=== PATIENT | female | born 1955 | race Caucasian/White ===

== ENCOUNTER 2017-07-12 08:49 | Day surgery (SDC) | payer BC ==
[2017-07-09 10:14] VITALS: BMI 26.5
[2017-07-12] MEDS ORDERED: Midazolam 2 MG/2 ML VIAL ONE (11:35)
[2017-07-12] MEDS ORDERED: Propofol 10 mg/ml Inj (20 ML) ONE (11:35)
[2017-07-12] MEDS ORDERED: ePHEDrine 50 mg/ml Inj ONE (11:48)
--- NOTE | 2017-07-12 12:02 | PCM.SURG1 ---
Surgeon's Initial Post Op Note - Surgeon's Notes Surgeon: Dr. Guajardo Bellman Captain: None Type of Anesthesia: General LMA Anesthesia Administered By: Dr. Napier Pre-Operative Diagnosis: 62 yo with Postmenopausal bleeding, Thickened endometrium Operative Findings: Av uterus atrophy endometrium Post-Operative Diagnosis: Same as above Operation Performed: Hysteroscopy Myosure D and C Specimen/Specimens Removed: EMC,ECC Estimated Blood Loss: EBL {In ML}: 5 Blood Products Given: N/A Drains Used: No Drains Post-Op Condition: Good Date of Surgery/Procedure: 07/12/17 Time of Surgery/Procedure: 12:02
[2017-07-12] MEDS ORDERED: HYDROmorphone 0.5 mg/0.5 ml ISec IVP PRN (12:03)
[2017-07-12 13:25] VITALS: RESP 16
[2017-07-12 14:39] VITALS: BP 94/51; PULSE 52; TEMP 97.1; O2SAT 98
--- NOTE | 2017-07-13 | OP ---
PROCEDURE DATE: 07/12/2017 PREOPERATIVE DIAGNOSES: A 62-year-old female with postmenopausal bleeding and thickened endometrium. POSTOPERATIVE DIAGNOSIS: A 62-year-old female with postmenopausal bleeding and thickened endometrium. PROCEDURE: Hysteroscopy and MyoSure D and C. SURGEON: Luana Guajardo MD TYPE OF ANESTHESIA: General LMA. ANESTHESIA ADMINISTERED BY: Dr. Melchor. FINDINGS: Anteverted uterus approximately 8 weeks gestation of areas of atrophic endometrium. COMPLICATIONS: None. ESTIMATED BLOOD LOSS: 5 mL. INPUTS AND OUTPUTS: 100 mL. SPECIMENS: EMC, ECC. DESCRIPTION OF PROCEDURE: The patient was informed of the risks factors, benefits, and alternatives of the procedure. Risk factors included infection, bleeding, damage to the surrounding organs and tissues, complication from anesthesia and possible . After informed consent was obtained, she was then taken to the operating room and prepped and draped in normal sterile fashion, placed in dorsal lithotomy position. A weighted speculum was placed into the vagina. The anterior lip of the cervix was grasped with a single-tooth tenaculum. The uterus was gently sounded to approximately 8 cm. Upon complete uterine dilation, the scope was then placed. A complete surveillance of the uterine cavity was performed under direct visualization. At the end, the MyoSure then removed and a fractional D and C was performed. EMC, ECC were submitted to pathology. Excellent hemostasis was noted. Upon completion, all instruments were removed from the vagina. Instrument and lap counts were correct x2. The patient was then taken to the recovery room in stable condition and instructed to follow up in the office in a week. Luana Guajardo MD
== END 2017-07-12 14:39 | disposition home or self-care (01) ==
LOC: C.SDS 08:49
PROVIDERS: ATTEND Obstetrics & Gynecology
DX: N84.0 Polyp of corpus uteri (principal); N85.8 Other specified noninflammatory disorders of uterus; N95.0 Postmenopausal bleeding
CPT/HCPCS: 58558; 88305; J1885; J2250; J2405; J2704; J3010; J7030

== ENCOUNTER 2017-11-08 08:11 | Observation (INO) | payer BC ==
[2017-07-09 10:12] VITALS: BMI 26.5
[2017-11-08] MEDS ORDERED: Methylene Blue 10 mg/mL(10ml) IV ONE (10:54)
[2017-11-08] MEDS ORDERED: Clindamycin 2% Vaginal Cream(40 gm) ONE (10:54)
[2017-11-08] MEDS ORDERED: cefOXitin IV 2 gm in Dextrose 2 GM/50 ML BAG IVPB ONE (10:55)
[2017-11-08] MEDS ORDERED: Midazolam 2 MG/2 ML VIAL ONE (11:02)
[2017-11-08] MEDS ORDERED: Propofol 10 mg/ml Inj (20 ML) ONE (11:02)
[2017-11-08] MEDS ORDERED: Rocuronium 10 mg/ml (5 ml) ONE ×2 (11:26→12:05)
[2017-11-08] MEDS ORDERED: Phenylephrine 10 mg/ml Inj ONE (11:42)
[2017-11-08] MEDS ORDERED: Piperacillin/Tazobact 3.375 gm 100 ML IVPB ONE (11:51)
[2017-11-08] MEDS ORDERED: Lactated Ringer's 1,000 ML IV SCH (13:30)
[2017-11-08] MEDS ORDERED: Neostigmine Methylsulfate 3mg/3ml Syringe IV ONE (13:38)
--- NOTE | 2017-11-08 13:48 | PCM.OP ---
Operative Report - Operative Report Date of Surgery/Procedure: 11/08/17 Time of Surgery/Procedure: 13:45 Surgeon: Dr Guajardo [employer] Store Manager: Dr. Louise, Intraoperative consult Dr. Horner Anesthesia/Sedation: Dr. Marie Pre-Operative Diagnosis: 62 yo with Postmenopausal spotting, Chronic pelvic pain Post-Operative Diagnosis: same as above Indication for Surgery: 62 yo with Postmenopausal spotting , Chronic pelvic pain Operative Findings: Av uterus 8- 10 wks , tubes and ovaries , Lyis of adhesion Procedure/Operation Description: Laparoscopic Hysterectomy/ BSO/ Cystoscopy Estimated Blood Loss: 50 cc Blood Replaced: None Sponge/Instrument Count: Final count correct Drains: None Complications: None Specimen: Uterus bilateral ovaries and tubes Discharge & Condition: Stable
[2017-11-08] MEDS ORDERED: Oxycodone/Acetaminophen 5/325 mg Tab PO PRN (13:54)
[2017-11-08] MEDS ORDERED: Sodium Chloride 0.9% 1,000 ML IV SCH (14:00)
[2017-11-08] MEDS: HYDROmorphone 0.5 mg/0.5 ml ISec IVP PRN ×2 (14:09→14:29)
[2017-11-08] MEDS ORDERED: Lactated Ringer's 1,000 ML IV ONE (14:35)
[2017-11-08] MEDS: cefOXitin IV 1 gm in Dextrose 1 GM/50 ML BAG IVPB SCH (18:57)
--- NOTE | 2017-11-09 01:46 | CON ---
DATE: 11/08/2017 OPERATIVE CONSULTATION AND REPORT The patient is a 62-year-old woman, being operated by Dr. Guajardo. She was concerned that during the procedure, there may have been a bowel injury and asked me to evaluate. The patient had undergone gynecological surgery. She was otherwise in stable condition and not suffered any significant blood loss or any other problems of this nature. The concern was that during the entry, there may have been some bowel injury. Examination of the peritoneal cavity which was done through three ports, one 5 on each side and a 10 in the midline and did not reveal any evidence of any bowel injury. There was no fecal material. There was no small bowel content. There was no free fluid. There was no sign of any other problem. In addition, we were able to visualize the surfaces of the colon, and there was no evidence of any significant adhesion. There were some adhesions in the left lower quadrant, but there were no adhesions affecting the colon that was visualized etc. In addition, the small bowel was run from the appendix backwards and the cecum backwards to the ligament of Treitz without any evidence of any injury. After this had been done, we then terminated the procedure. My impression is there was no evidence of any small or large bowel injury. We will monitor the patient. There were no concerns for any additional operative intervention. Ryley Horner Jr., MD [facility]
[2017-11-09] MEDS: cefOXitin IV 1 gm in Dextrose 1 GM/50 ML BAG IVPB SCH ×2 (03:38→12:34)
--- NOTE | 2017-11-09 08:13 | CP.PCM.PN ---
Subjective - Date & Time of Evaluation Date of Evaluation: 11/09/17 Time of Evaluation: 08:12 - Subjective Subjective: clinically stable, abdomen soft, hungry. add magmt per Dr Guajardo Objective - Vital Signs/Intake and Output Vital Signs (last 24 hours): Temp Pulse Resp BP Pulse Ox 97 F L 81 520 H 109/69 99 11/08/17 16:25 11/09/17 00:00 11/09/17 00:00 11/09/17 00:00 11/09/17 00:00 - Medications Medications: Current Medications Docusate Sodium (Colace) 100 mg PO BID [facility] Last Admin: 11/08/17 18:42 Dose: Not Given Hydrochlorothiazide (Microzide) 12.5 mg PO DAILY [facility] Lactated Ringer's (Lactated Ringer's) 1,000 mls @ 100 mls/hr IV .Q10H PB Cefoxitin Sodium (Mefoxin Iv 1 Gm Duplex) 1 gm in 50 mls @ 50 mls/hr IVPB Q8H PB PRN Reason: Protocol Stop: 11/09/17 12:19 Last Admin: 11/09/17 03:38 Dose: 50 mls/hr Sodium Chloride (Sodium Chloride 0.9%) 1,000 mls @ 0 mls/hr IV .Q0M PB PRN Reason: Per Protocol Ibuprofen (Motrin Tab) 600 mg PO TID [facility] Last Admin: 11/08/17 18:42 Dose: Not Given Losartan Potassium (Cozaar) 100 mg PO DAILY [facility] Ondansetron HCl (Zofran Inj) 4 mg IVP ONCE PRN PRN Reason: Nausea/Vomiting Oxycodone/Acetaminophen (Percocet 5/325 Mg Tab) 1 tab PO Q4 PRN PRN Reason: Other Stop: 11/11/17 13:55 Last Admin: 11/08/17 22:44 Dose: 1 tab
[2017-11-09 08:20] LABS: HEMOGLOBIN 10.6 g/dL (11.0-16.0); MEAN CELL VOLUME 86.5 fL (81.0-99.0); MEAN CORPUSCULAR HEMOGLOBIN 28.5 pg (27.0-31.0); RBC 3.73 Mil/uL (3.80-5.20); RED CELL DISTRIBUTION WIDTH 13.9 % (11.5-14.5); WHITE BLOOD COUNT 10.1 K/uL (4.8-10.8)
[2017-11-09] MEDS ORDERED: oxyCODONE 5 mg Immediate Release Tab PO PRN (10:32)
[2017-11-09 14:12] LABS: CALCIUM 8.7 mg/dl (8.6-10.4)
[2017-11-09 20:39] VITALS: RESP 20
[2017-11-10 00:25] VITALS: BP 107/68; PULSE 62; TEMP 97.2; O2SAT 98
[2017-11-10 08:34] LABS: BASO % 0.5 % (0.0-2.0); EOS # 0.2 K/uL (0.0-0.7); EOS % 2.2 % (0.0-4.0); HEMOGLOBIN 11.3 g/dL (11.0-16.0); LYMPH # 2.1 K/uL (1.0-4.3); LYMPH % 21.6 % (20.0-40.0); MEAN CELL VOLUME 87.6 fL (81.0-99.0); MEAN CORPUSCULAR HEMOGLOBIN 29.4 pg (27.0-31.0); MEAN CORPUSCULAR HGB CONC 33.6 g/dL (33.0-37.0); MONO # 0.5 K/uL (0.0-0.8); MONO % 5.5 % (0.0-10.0); NEUT # 6.9 K/uL (1.8-7.0); NEUT % 70.2 % (50.0-75.0); RBC 3.85 Mil/uL (3.80-5.20); RED CELL DISTRIBUTION WIDTH 13.9 % (11.5-14.5); WHITE BLOOD COUNT 9.8 K/uL (4.8-10.8)
[2017-11-10 08:41] LABS: CALCIUM 8.9 mg/dl (8.6-10.4)
--- NOTE | 2017-12-07 06:36 | OP ---
PROCEDURE DATE: 11/08/2017 PREOPERATIVE DIAGNOSIS: A 62-year-old female with postmenopausal spotting and chronic pelvic pain. POSTOPERATIVE DIAGNOSES: A 62-year-old female with postmenopausal spotting and chronic pelvic pain, in additional that she did have some adhesions. PROCEDURE: Total laparoscopic hysterectomy, bilateral salpingo-oophorectomy, cystoscopy, and an intraoperative consult with general anesthesia. SURGEON: Luana Guajardo MD CHAIN DYER: Hakan Louise MD INTRAOPERATIVE CONSULT WITH: Ryley Horner Jr., MD TYPE OF ANESTHESIA: General anesthesia with endotracheal tube. OPERATIVE FINDING: Multiple adhesions. Intraoperative consult was called for Dr. Horner just to inspect the bowel. Normal anteverted uterus. No adnexal mass was palpated or seen. Normal cystoscopy. 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 SPECIMEN: Uterus with cervix, tubes and ovaries. ESTIMATED BLOOD LOSS: Minimal, 50 mL. COMPLICATION: None. CLINICAL NOTE: The patient is a 62-year-old female known to have progressive postmenopausal bleeding as well as chronic pelvic pain. The patient requested definite management with the hysterectomy after discussing all possible medical options. Risk factor, benefit and alternative of the procedure were explained. Risk factors included infection, bleeding, damage to surrounding organs and tissues, damage to the ureters as well as possibility of complications that can be even to . She understood all the risk factors. Informed consent was obtained. Once the informed consent was obtained, she was then taken to the operating room, prepped and draped in a normal sterile fashion, placed in dorsal lithotomy position. A weighted speculum was placed into the vagina. The anterior lip of the cervix was grasped with a single-tooth tenaculum. The uterus was gently dilated to approximately 8 with dilators. Upon complete uterine dilation, the medium-sized Vcare device was utilized in order to prepare to manipulate the uterine cavity. In that particular instance once completed, a 5-mm incision was made and with a 5-mm Optiview trocar under direct visualization. Once confirmed with the scope, the peritoneal cavity was insufflated with CO2 gas to a maximal pressure of 15 mmHg. The laparoscope again like I previously mentioned was confirmed by entry. Examination of the peritoneal cavity revealed no signs of injury entry, but due to her previous surgery, the patient had undergone abdominoplasty and multiple surgeries, intraoperative consult was called with Dr. Siri victoria to be safe. The patient was then placed in steep Trendelenburg position, and two additional 5-mm ports were placed, one on the left and another one on the right. All trocars were placed under direct visualization with no damage to the surrounding tissues. The uterus was tilt upward from below and revealed a normal uterus, and that particular entrance once visualized, LigaSure device was utilized. The infundibular ligaments on both sides were basically cauterized. Excellent hemostasis was noted. Then, the round ligament with the LigaSure device was cauterized. Excellent hemostasis. On the right side, the bladder flap was then created. The same thing was done on the left side as well. Upon completion, the monopolar hook was utilized and now once the uterus on a circumferential , the uterus was delivered through the vagina and sent to Pathology together with the ovaries and the tubes. A sterile glove was placed into the vagina to form a pneumatic field, and all the pedicles as well as the cuff edges were examined. The vaginal cuff was closed with 0 Vicryl. Excellent hemostasis was noted, and inspection of all areas was made to ensure hemostasis. In that particular instance upon completion, all ports were removed under direct visualization. Hemostasis was noted. Upon completion, all incisions were closed with 4-0 Monocryl sutures. Excellent hemostasis. In that particular instance, a cystoscopy was then performed. It demonstrated that the ureter was patent. At the end of the procedure, all sponge, instruments, and sharps were counted and correct. Estimated blood loss is only 50 mL. The patient tolerated the procedure well. She was then taken to Recovery in stable condition. Luana Guajardo MD
== END 2017-11-10 13:45 | disposition home or self-care (01) ==
LOC: C.SDS 08:11 → C.4M 13:54 → INTOOBSV 13:54
PROVIDERS: ADMIT Obstetrics & Gynecology; ATTEND Obstetrics & Gynecology
DX: N94.9 Unspecified condition associated with female genital organs and menstrual cycle (principal); N95.0 Postmenopausal bleeding; G89.29 Other chronic pain
CPT/HCPCS: 36415; 52000; 58552; 80048; 85025; 85027; 86850; 86900; 88302; 88309; 96365; 96366; C2615; G0378; J0694; J1170; J2001; J2250; J2370; J2543; J2704; J2710; J3010; J7120